=== PATIENT | female | born 1990 | race Asian ===

== ENCOUNTER 2017-12-07 21:14 | Emergency (ER) | payer MEDICAID, OTHER ==
[~2017-12-07] VITALS: Ht 165.1 cm; Wt 49.9 kg
[~2017-12-07 21:14] MED LIST: NKM
[2017-12-07 21:30] VITALS: BP 124/76
--- NOTE | 2017-12-07 21:50 | Emergency Room Report ---
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 Patient last night had an episode where she coughed and felt weak she has a history of pacemaker and therefore was concerned about her heart Denies any vomiting or diarrhea Allergies: Coded Allergies: NO KNOWN ALLERGIES (Unverified Allergy, Unknown, 11/22/15) Patient History Past Medical History: see triage record Pertinent Family History: none Last Menstrual Period: nov 16 Now: No Reviewed Nursing Documentation: PMH: Agreed, PSxH: Agreed Nursing Documentation-PMH Hx Cardiac Problems: Yes Hx Pacemaker: Yes - 12-18-15 Hx Cancer: No Hx Gastrointestinal Problems: No Hx Neurological Problems: No Review of Systems All Other Systems: negative except mentioned in HPI Physical Exam Vital Signs Date Time Temp Pulse Resp B/P (MAP) Pulse Ox O2 Delivery O2 Flow Rate FiO2 12/07/17 21:17 99.5 54 17 124/76 99 Room Air 12/07/17 21:30 99 Sp02 EP Interpretation: reviewed, normal General Appearance: well appearing, no apparent distress Head: normocephalic, atraumatic Eyes: bilateral eye PERRL, bilateral eye EOMI ENT: hearing grossly normal, TMs + canals normal, uvula midline, pharyngeal erythema Neck: full range of motion, supple, no meningismus, no bony tend Respiratory: lungs clear, normal breath sounds, no rhonchi, no respiratory distress, no retraction, no accessory muscle use Cardiovascular #1: normal peripheral pulses, regular rate, rhythm, no edema, no gallop, no JVD, no murmur Gastrointestinal: normal bowel sounds, non tender, soft, no mass, no organomegaly, non-distended, no guarding, no hernia, no pulsatile mass, no rebound Genitourinary: no CVA tenderness Musculoskeletal: normal inspection Neurologic: oriented x3, responsive, conservation educator III-XII nml as tested, motor strength/ tone normal, sensory intact Psychiatric: mood/affect normal Skin: normal color, no rash, warm/dry, palpation normal Lymphatic: normal inspection, no adenopathy Medical Decision Making Diagnostic Impression: Primary Impression: Influenza-like symptoms ER Course Multiple differentials considered Patient here has a benign medical evaluation hemodynamically remains appropriate Patient appears to have symptoms and findings in line with flu symptoms given her early presentation patient will be placed on Tamiflu and will have initial conservative outpatient trial Last Vital Signs Date Time Temp Pulse Resp B/P (MAP) Pulse Ox O2 Delivery O2 Flow Rate FiO2 12/07/17 21:30 54 17 Room Air 99 12/07/17 21:30 99.5 124/76 99 Status: unchanged Disposition: HOME, SELF-CARE Condition: Stable Additional Instructions: Patient is provided with the discharge instructions notified to follow up with primary doctor in the next 2-3 days otherwise return to the er with any worsening symptoms. Please note that this report is being documented using [employer] technology. This can lead to erroneous entry secondary to incorrect interpretation by the dictating instrument. JAYESH DIAZ D.O. Dec 07, 2017 21:50
[2017-12-07] MEDS ORDERED: IBUPROFEN600 MG ORAL (21:51)
[2017-12-07] MEDS ORDERED: TAMIFLU75 MG ORAL (21:51)
[2017-12-07 22:12] VITALS: BP 124/76
== END 2017-12-07 22:12 | disposition home or self-care (01) ==
LOC: EMR 21:36
DX: J11.1 Influenza due to unidentified influenza virus with other respiratory manifestations (principal); Z95.0 Presence of cardiac pacemaker
CPT/HCPCS: 99283

== ENCOUNTER 2018-09-21 11:52 | Emergency (ER) | payer OTHER ==
[~2018-09-21] VITALS: Ht 165.1 cm; Wt 54.4 kg
[~2018-09-21 11:52] MED LIST changes: +IBUPROFEN600 MG ORAL; +TAMIFLU75 MG ORAL
[2018-09-21 12:03] VITALS: BP 121/70
[2018-09-21] MEDS ORDERED: Bacitracin Oint UD TOPIC ONE ×2 (12:17→12:30)
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
[2018-09-21] MEDS ORDERED: BACITRACIN-P28.35 GM TP (13:07)
[2018-09-21] MEDS ORDERED: TYLENOL EXTRA500 MG ORAL (13:07)
[2018-09-21 13:18] VITALS: BP 121/70
--- NOTE | 2018-09-21 13:46 | Diagnostic Imaging Report ---
Indication: Left arm pain Findings: 2 views of the left humerus were obtained. No acute fractures, malalignment, erosions or periostitis are identified. Bone mineralization is within normal limits. Soft tissues are unremarkable. Impression: No acute injury.
--- NOTE | 2018-09-21 13:49 | Diagnostic Imaging Report ---
Indication: Left elbow pain Findings: 3 views of the left elbow were obtained. No acute fractures, malalignment, erosions or periostitis are identified. Soft tissues are unremarkable. Impression: No acute injury
== END 2018-09-21 13:19 | disposition home or self-care (01) ==
LOC: EMR 12:57
DX: S50.02XA Contusion of left elbow, initial encounter (principal); S50.312A Abrasion of left elbow, initial encounter; Y04.2XXA Assault by strike against or bumped into by another person, initial encounter; Y92.9 Unspecified place or not applicable
CPT/HCPCS: 99284

== ENCOUNTER 2019-04-04 19:50 | Emergency (ER) | payer OTHER ==
[~2019-04-04] VITALS: Ht 160 cm; Wt 64.0 kg
[~2019-04-04 19:50] MED LIST changes: +BACITRACIN-P28.35 GM TP; +TYLENOL EXTRA500 MG ORAL
--- NOTE | 2019-04-04 20:00 | NUR ---
ED Nurse Note: pt came to ed from home c/o pain due bite from stray cat from yesterday.
[2019-04-04 20:01] VITALS: BP 133/86
[2019-04-04] MEDS ORDERED: Tetanus/Diptheria/Pertussis IM ONE (20:15)
[2019-04-04] MEDS ORDERED: Augmentin 875mg Tab ORAL ONE (20:15)
--- NOTE | 2019-04-04 20:18 | Emergency Room Report ---
History of Present Illness General Chief Complaint: Animal Bite Source: Patient Present Illness HPI 29-year-old female presents to the emergency department complaining of 4 out of 10 in severity localized pain, bruising and puncture wound to the right thigh status post animal bite yesterday afternoon. Patient describes being bitten and scratched by a stray cat. Patient states she is not up-to-date with her tetanus vaccination. Patient reports hot and cold flashes. Denies bleeding at this time she denies taking blood thinning medication she denies history of immunocompromise. pain increased with walking. no relieving factors. Allergies: Coded Allergies: NO KNOWN ALLERGIES (Unverified Allergy, Unknown, 11/22/15) Patient History Past Medical History: see triage record Past Surgical History: none Pertinent Family History: none Last Menstrual Period: 03/12/19 Now: No Reviewed Nursing Documentation: PMH: Agreed; PSxH: Agreed Nursing Documentation-PMH Past Medical History: No History, Except For Hx Cardiac Problems: Yes - bradycardia Hx Pacemaker: Yes - 12-18-15 Hx Cancer: No Hx Gastrointestinal Problems: No Hx Neurological Problems: No Review of Systems All Other Systems: negative except mentioned in HPI Physical Exam Vital Signs Date Time Temp Pulse Resp B/P (MAP) Pulse Ox O2 Delivery O2 Flow Rate FiO2 04/04/19 19:52 97.7 60 18 98 Room Air 04/04/19 20:01 133/86 Sp02 EP Interpretation: reviewed, normal General Appearance: no apparent distress, alert, GCS 15, non-toxic Head: normocephalic, atraumatic Eyes: bilateral eye normal inspection, bilateral eye PERRL ENT: hearing grossly normal, normal voice Neck: full range of motion Respiratory: lungs clear, normal breath sounds, speaking full sentences Cardiovascular #1: regular rate, rhythm Musculoskeletal: gait/station normal, normal range of motion, non-tender Neurologic: alert, oriented x3, responsive, motor strength/tone normal, sensory intact, speech normal, grossly normal Psychiatric: judgement/insight normal Skin: normal color, no rash, warm/dry, well hydrated, other - two puncture wounds with localized bruising and tenderness on the lateral right thigh. multiple superficial scratches on the right calf and thigh. Lymphatic: no adenopathy Medical Decision Making PA Attestation Dr. farnco is my supervising Physician whom patient management has been discussed with. Diagnostic Impression: Primary Impression: Cat bite of thigh Qualified Codes: S71.151A - Open bite, right thigh, initial encounter; W55.01XA - Bitten by cat, initial encounter Additional Impression: Cat scratch of multiple sites ER Course 29-year-old female presents to the emergency department complaining of 4 out of 10 in severity localized pain, bruising and puncture wound to the right thigh status post animal bite yesterday afternoon. Patient describes being bitten and scratched by a stray cat. Patient states she is not up-to-date with her tetanus vaccination. Patient reports hot and cold flashes. Denies bleeding at this time she denies taking blood thinning medication she denies history of immunocompromise. pain increased with walking. no relieving factors. Pt. presents to the ED c/o dog bite 4 days ago, tetanus not up to date, rabies on animal is unknown ( stray cat) Ddx considered but are not limited to Cellulitis, rabies, fracture, neurovascular compromise of extremity. Vital signs: are WNL, pt. is afebrile H&PE are most consistent with Cat bite and multiple scratches. ORDERS: none required at this time, the diagnosis is clinical ED INTERVENTIONS: -Tetanus vaccination is administered. -Augmentin PO DISCHARGE: At this time pt. is stable for d/c to home. Will provide printed patient care instructions, and any necessary prescriptions. Care plan and follow up instructions have been discussed with the patient prior to discharge. * Augmentin TID x 7 days. Last Vital Signs Date Time Temp Pulse Resp B/P (MAP) Pulse Ox O2 Delivery O2 Flow Rate FiO2 04/04/19 20:01 97.7 60 18 133/86 98 Room Air Disposition: HOME, SELF-CARE Condition: Stable Patient Instructions: Animal Bite Additional Instructions: Take medications as directed. Follow up with a Primary Care Provider in 3-5 days, even if your symptoms have resolved. --Please review list of primary care clinics, if you do not already have a primary care provider Return sooner to ED if new symptoms occur, or current symptoms become worse. - Please note that this Emergency Department Report was dictated using [employer] technology software, occasionally this can lead to erroneous entry secondary to interpretation by the dictation equipment. Mitzy Encarnacion April 04, 2019 20:18
[2019-04-04] MEDS ORDERED: Bacitracin Oint UD TOPIC ONE (20:27)
[2019-04-04] MEDS ORDERED: BACITRACIN-P28.35 GM TP (20:28)
[2019-04-04] MEDS ORDERED: AUGMENTIN 875-1 EAC1 ORAL (20:28)
[2019-04-04] MEDS ORDERED: TYLENOL EXTRA500 MG ORAL (20:28)
[2019-04-04 20:45] VITALS: BP 127/81
--- NOTE | 2019-04-04 20:46 | NUR ---
ER DISCHARGE NOTE: Patient is cleared to be discharged per ERMD, pt is aox4, on room air, with stable vital signs. pt was given dc and prescription instructions, pt was able to verbalize understanding, pt id band remvoed. pt is able to ambulate with steady gait. pt took all belongings.
== END 2019-04-04 20:50 | disposition home or self-care (01) ==
LOC: EMR 20:30
DX: S71.151A Open bite, right thigh, initial encounter (principal); W55.01XA Bitten by cat, initial encounter; Z95.0 Presence of cardiac pacemaker; Z23 Encounter for immunization
CPT/HCPCS: 90471; 90715; 99283

== ENCOUNTER → 2019-11-16 | Emergency (ER) | payer OTHER ==
[~2019-11-16] VITALS: Ht 162.6 cm; Wt 61.2 kg
[~2019-11-16] MED LIST changes: +AUGMENTIN 875-1 EAC1 ORAL
[2019-11-16 16:07] VITALS: BP 111/58
--- NOTE | 2019-11-16 16:08 | NUR ---
ED Nurse Note:pt. was bitten by squorell, she has small red dott on right second finger
--- NOTE | 2019-11-16 16:09 | Emergency Room Report ---
History of Present Illness General Chief Complaint: Animal Bite Source: Patient, Medical Record Present Illness HPI 29-year-old female presents to emergency room status post squirrel bite 2 hours prior to arrival. Patient reported trying to feed a squirrel when it attacked her finger. She reported a small puncture wound to the distal second digit. She cleaned wound with soap and water and placed a unknown cream on it. She denies any pain but she was brought in for treatment. Allergies: Coded Allergies: NO KNOWN ALLERGIES (Unverified Allergy, Unknown, 11/22/15) Patient History Last Menstrual Period: 11/12/2019 Now: No : 0 Nursing Documentation-PMH Hx Cardiac Problems: Yes - bradycardia Hx Pacemaker: Yes - 12-18-15 Hx Cancer: No Hx Gastrointestinal Problems: No Hx Neurological Problems: No Review of Systems Constitutional: Denies: chills, fever Respiratory: Denies: cough, shortness of breath Cardiovascular: Denies: chest pain, palpitations Gastrointestinal: Denies: diarrhea, vomiting Genitourinary: Denies: hematuria, pain Musculoskeletal: Denies: joint swelling Skin: Denies: rash, lesions Neurological: Denies: headache, dizziness Physical Exam Vital Signs Date Time Temp Pulse Resp B/P (MAP) Pulse Ox O2 Delivery O2 Flow Rate FiO2 11/16/19 15:24 97.7 55 15 111/58 (75) 98 Room Air Sp02 EP Interpretation: reviewed General Appearance: well appearing, no apparent distress, non-toxic Head: normocephalic, atraumatic Eyes: bilateral eye normal inspection ENT: hearing grossly normal, EOM grossly intact, moist mucus membranes Neck: supple Respiratory: lungs clear, normal breath sounds, no respiratory distress, speaking full sentences Cardiovascular #1: regular rate, rhythm, normal capillary refill Cardiovascular #2: 2+ radial (R), 2+ radial (L) Gastrointestinal: soft, non-distended Rectal: deferred Musculoskeletal: moves extm spontaneously, no lower extremity edema Neurologic: grossly normal Psychiatric: mood/affect normal Skin: warm/dry, normal turgor, other - Puncture wound to distal second digit on right hand. No active bleeding, no discharge Medical Decision Making Diagnostic Impression: Primary Impression: Animal bite of finger ER Course 29 yo F pw small puncture wound from squirrel bite 2 hours prior to arrival. No active bleeding, wound clean dry and intact, no signs of cellulitis or sepsis. We will treat with antibiotics. Patient discharged follow-up Last Vital Signs Date Time Temp Pulse Resp B/P (MAP) Pulse Ox O2 Delivery O2 Flow Rate FiO2 11/16/19 15:24 97.7 55 15 111/58 (75) 98 Room Air Disposition: HOME, SELF-CARE Scripts Amoxicillin/Potassium Clav 875-125* (AUGMENTIN 875-125 TABLET*) 1 Each Tablet 1 TAB ORAL TWICE A DAY for 10 Days, #20 TAB Prov: Ilya Santacruz M.D. 11/16/19 Referrals: NON PHYSICIAN (PCP) Patient Instructions: Animal Bite Additional Instructions: Please follow-up with primary care doctor in 3 to 5 days for reevaluation of wound. Please take antibiotics as prescribed. Ilya Santacruz M.D. Nov 16, 2019 16:09
== END | disposition home or self-care (01) ==
LOC: EMR 15:40
DX: S61.451A Open bite of right hand, initial encounter (principal); W53.21XA Bitten by squirrel, initial encounter; Y92.9 Unspecified place or not applicable; Z95.0 Presence of cardiac pacemaker
CPT/HCPCS: 81025; Z7502; 99282